=== PATIENT | female | born 1955 | race Caucasian/White ===

== ENCOUNTER 2018-09-08 20:23 | Emergency (ER) | payer SELFPAY ==
[~2018-09-08] VITALS: Ht 152.4 cm; Wt 53.2 kg
[2018-09-08 20:47] VITALS: BP 122/79
--- NOTE | 2018-09-08 20:52 | NUR ---
PT AMBULATED BACK TO LOBBY WITH STEADY GAIT AWAITING AVAILABLE BED.
--- NOTE | 2018-09-08 21:16 | NUR ---
PT AMBULATED WITH STEADY GAIT TO CHAIR E.
--- NOTE | 2018-09-08 21:17 | NUR ---
DR. ANN EVALUATING PT
[2018-09-08 21:22] VITALS: BP 122/79
--- NOTE | 2018-09-08 21:22 | NUR ---
Patient discharged with v/s stable. Written and verbal after care instructions given and explained, by Dr Bear. Patient verbalized understanding. Ambulatory with steady gait. All questions addressed prior to discharge. Advised to follow up with PMD.
== END 2018-09-08 21:22 | disposition home or self-care (01) ==
LOC: MED 20:23
DX: H11.32 Conjunctival hemorrhage, left eye (principal)
CPT/HCPCS: 99281